=== PATIENT | male | born 1975 | race African-American/Black ===

== ENCOUNTER 2021-10-07 08:41 | Emergency (ER) | payer MEDICARE, MEDICAID ==
[~2021-10-07] VITALS: Ht 180.3 cm; Wt 74.8 kg
[~2021-10-07 08:41] MED LIST: ANAPROX DS550 MG PO; BACTRIM DS 8001 TAB PO; KEFLEX500 M1 PO; LAMISIL250 MG PO; MOTRIN800 MG PO; Motrin,Rufen800 MG PO; SEPTRA DS 800 M1 TAB PO
[2021-10-07] MEDS ORDERED: BUSPIRONE HCL30 MG PO (09:02)
[2021-10-07] MEDS ORDERED: ARIPIPRAZOLE10 MG PO (09:02)
[2021-10-07] MEDS ORDERED: TRAZODONE150 MG PO (09:03)
[2021-10-07] MEDS ORDERED: LAMOTRIGINE25 M1 PO (09:03)
[2021-10-07] MEDS ORDERED: ESCITALOPRAM OX20 MG PO (09:03)
[2021-10-07] MEDS ORDERED: TADALAFIL5 M1 PO (09:04)
[2021-10-07 09:14] LABS: BASO % 0.8 % (0.0-1.0); EOS # 0.1 10*3/uL (0.0-0.4); EOS % 1.6 % (1.0-4.0); HEMATOCRIT 43.1 % (42.0-52.0); LYMPH # 1.4 10*3/uL (1.3-4.4); LYMPH % 34.9 % (27.0-41.0); MEAN CELL VOLUME 71.7 fl (80.0-94.0); MEAN CORPUSCULAR HGB 22.8 pg (27.0-31.0); MEAN CORPUSCULAR HGB CONC 31.8 g/dl (33.0-37.0); MEAN PLATELET VOLUME 9.3 fl (9.6-12.3); MONO # 0.3 10*3/uL (0.1-1.0); MONO % 8.3 % (3.0-9.0); NEUT # 2.1 10*3/uL (2.3-7.9); NEUT % 54.1 % (47.0-73.0); PLATELET COUNT AUTOMATED 354 10*3/uL (130-400); RED BLOOD COUNT 6.01 10*6/uL (4.50-5.90); RED CELL DISTRI WIDTH 14.2 % (0-14.5); WHITE BLOOD COUNT 3.9 10*3/uL (4.8-10.8)
[2021-10-07 09:24] LABS: ACT PARTIAL THROMBO TIME 30.7 SECONDS (20.0-32.1)
[2021-10-07 09:28] LABS: ALKALINE PHOSPHATASE 68 U/L (45-117); BUN 4 mg/dl (7-24); CHLORIDE 110 mmol/L (98-107); CREATININE 0.99 mg/dL (0.70-1.30); POTASSIUM 3.7 mmol/L (3.5-5.1); SGOT/AST 13 IU/L (3-35); SGPT/ALT 24 U/L (12-78); SODIUM 140 mmol/L (136-145); TOTAL PROTEIN 7.6 gm/dL (6.4-8.2)
[2021-10-07] MEDS ORDERED: CYCLOBENZAPRINE10 MG PO (11:40)
[2021-10-07] MEDS ORDERED: PREDNISONE50 MG PO (11:40)
== END 2021-10-07 11:45 | disposition home or self-care (01) ==
LOC: ED 08:41
PROVIDERS: Family Medicine
DX: M50.10 Cervical disc disorder with radiculopathy, unspecified cervical region (principal); Z79.899 Other long term (current) drug therapy

== ENCOUNTER 2021-11-08 03:13 | Emergency (ER) | payer MEDICARE, MEDICAID ==
[~2021-11-08] VITALS: Wt 76.7 kg
[~2021-11-08 03:13] MED LIST changes: +ARIPIPRAZOLE10 MG PO; +BUSPIRONE HCL30 MG PO; +CYCLOBENZAPRINE10 MG PO; +ESCITALOPRAM OX20 MG PO; +LAMOTRIGINE25 M1 PO; +PREDNISONE50 MG PO; +TADALAFIL5 M1 PO; +TRAZODONE150 MG PO
[2021-11-08 05:23] LABS: ALKALINE PHOSPHATASE 50 U/L (45-117); BUN 8 mg/dl (7-24); CHLORIDE 105 mmol/L (98-107); CREATININE 1.18 mg/dL (0.70-1.30); POTASSIUM 3.8 mmol/L (3.5-5.1); SGOT/AST 21 IU/L (3-35); SGPT/ALT 22 U/L (12-78); SODIUM 136 mmol/L (136-145); TOTAL PROTEIN 7.4 gm/dL (6.4-8.2)
[2021-11-08 05:53] LABS: BASO % 0.2 % (0.0-1.0); HEMATOCRIT 42.4 % (42.0-52.0); LYMPH # 0.5 10*3/uL (1.3-4.4); LYMPH % 8.6 % (27.0-41.0); MEAN CELL VOLUME 71.7 fl (80.0-94.0); MEAN CORPUSCULAR HGB 22.3 pg (27.0-31.0); MEAN CORPUSCULAR HGB CONC 31.1 g/dl (33.0-37.0); MEAN PLATELET VOLUME 9.6 fl (9.6-12.3); MONO # 0.4 10*3/uL (0.1-1.0); MONO % 7.2 % (3.0-9.0); NEUT % 83.8 % (47.0-73.0); PLATELET COUNT AUTOMATED 259 10*3/uL (130-400); RED BLOOD COUNT 5.91 10*6/uL (4.50-5.90); RED CELL DISTRI WIDTH 13.7 % (0-14.5)
[2021-11-08 07:14] LABS: BILIRUBIN Negative (Negative); BLOOD Negative (Negative); CLARITY Clear (Clear); COLOR Yellow (Yellow); GLUCOSE Negative (Negative); KETONE Negative (Negative); LEUKO ESTERASE 2+ (Negative); NITRITE Positive (Negative); PH 6.5 (4.5-8.0)
[2021-11-08 07:52] LABS: WBC TNTC wbc/hpf (0-5)
[2021-11-08 07:53] LABS: BACTERIA 4+
[2021-11-08] MEDS ORDERED: CIPRO500 MG PO (11:33)
== END 2021-11-08 11:50 | disposition home or self-care (01) ==
LOC: ED 03:13
PROVIDERS: Emergency Medicine
DX: N39.0 Urinary tract infection, site not specified (principal); K59.00 Constipation, unspecified; Z79.899 Other long term (current) drug therapy

== ENCOUNTER → 2022-10-23 | Outpatient (CLI) | payer OTHER, MEDICARE, MEDICAID ==
[~2022-10-23] MED LIST changes: +CIPRO500 MG PO
[2022-10-23 09:01] LABS: CHOLESTEROL 152 mg/dL (<200); LDL CHOLESTEROL 92 mg/dL (9-159); TRIGLYCERIDES 61 mg/dl (<150)
== END | disposition home or self-care (01) ==
LOC: LAB 08:11
PROVIDERS: ATTEND Psychiatry & Neurology Psychiatry
DX: F43.12 Post-traumatic stress disorder, chronic (principal)

== ENCOUNTER → 2023-07-12 | Outpatient (CLI) | payer MEDICARE, MEDICAID ==
[2023-07-12 16:46] LABS: BASO % 0.5 % (0.0-1.0); EOS # 0.1 10*3/uL (0.0-0.4); EOS % 2.5 % (1.0-4.0); HEMATOCRIT 43.6 % (42.0-52.0); LYMPH # 1.8 10*3/uL (1.3-4.4); MEAN CELL VOLUME 74.3 fl (80.0-94.0); MEAN CORPUSCULAR HGB 22.3 pg (27.0-31.0); MEAN PLATELET VOLUME 9.5 fl (9.6-12.3); MONO # 0.4 10*3/uL (0.1-1.0); MONO % 8.4 % (3.0-9.0); NEUT # 2.1 10*3/uL (2.3-7.9); NEUT % 48.4 % (47.0-73.0); PLATELET COUNT AUTOMATED 376 10*3/uL (130-400); RED BLOOD COUNT 5.87 10*6/uL (4.50-5.90); RED CELL DISTRI WIDTH 13.9 % (0-14.5); WHITE BLOOD COUNT 4.4 10*3/uL (4.8-10.8)
[2023-07-12 17:13] LABS: ALKALINE PHOSPHATASE 53 U/L (46-116); BUN 11 mg/dl (9-23); CHLORIDE 104 mmol/L (98-107); FREE T4 1.03 ng/dl (0.89-1.76); POTASSIUM 3.8 mmol/L (3.4-5.1); SGPT/ALT 25 U/L (5-49); TOTAL PROTEIN 7.8 gm/dL (6.0-8.0)
== END | disposition home or self-care (01) ==
LOC: LAB 16:30
PROVIDERS: ATTEND Internal Medicine
DX: F32.2 Major depressive disorder, single episode, severe without psychotic features (principal); F43.10 Post-traumatic stress disorder, unspecified; N40.1 Benign prostatic hyperplasia with lower urinary tract symptoms

== ENCOUNTER 2024-05-19 16:10 | Emergency (ER) | payer MEDICARE, MEDICAID ==
[2024-05-19] MEDS ORDERED: ASPIRIN, CHEWABLE 81 MG TAB PO ONE (16:20)
== END 2024-05-19 16:35 | disposition left against medical advice (07) ==
LOC: ED 16:10
DX: R07.89 Other chest pain (principal); Z53.21 Procedure and treatment not carried out due to patient leaving prior to being seen by health care provider

== ENCOUNTER → 2024-06-16 | Outpatient (CLI) | payer MEDICARE, MEDICAID ==
[2024-06-16 09:59] LABS: HEMATOCRIT 43.6 % (42.0-52.0); MEAN CELL VOLUME 73.9 fl (80.0-94.0); MEAN CORPUSCULAR HGB 22.7 pg (27.0-31.0); MEAN CORPUSCULAR HGB CONC 30.7 g/dl (33.0-37.0); MEAN PLATELET VOLUME 8.9 fl (9.6-12.3); RED BLOOD COUNT 5.9 10*6/uL (4.50-5.90); RED CELL DISTRI WIDTH 13.2 % (0-14.5); WHITE BLOOD COUNT 3.3 10*3/uL (4.8-10.8)
[2024-06-16 10:34] LABS: ALKALINE PHOSPHATASE 53 U/L (46-116); BUN 14 mg/dl (9-23); CHLORIDE 105 mmol/L (98-107); CHOLESTEROL 134 mg/dL (<200); FREE T4 1.05 ng/dl (0.89-1.76); LDL CHOLESTEROL 78 mg/dL (9-159); SGPT/ALT 17 U/L (5-49); TOTAL PROTEIN 7.8 gm/dL (6.0-8.0); TRIGLYCERIDES 54 mg/dl (<150)
[2024-06-16 10:38] LABS: VITAMIN D, 25-HYDROXY 16.9 ng/mL (30-100)
== END | disposition home or self-care (01) ==
LOC: LAB 09:34
PROVIDERS: ATTEND Family Medicine
DX: E55.9 Vitamin D deficiency, unspecified (principal); R53.83 Other fatigue; E78.00 Pure hypercholesterolemia, unspecified; R05.9 Cough, unspecified; Z79.899 Other long term (current) drug therapy